=== PATIENT | male | born 1950 | race Caucasian/White ===

== ENCOUNTER 2018-05-14 09:19 | Inpatient (IN) | payer MEDICARE ==
[~2018-05-14] VITALS: Ht 172.7 cm; Wt 114.0 kg
[2018-05-14] VITALS (10 sets, daily range): BP systolic 84–131; BP diastolic 46–66
[~2018-05-14 09:19] MED LIST: ACETAMIN325 MG PO; ADVAIR DISK1 INH; ALBUTEROL SUL0.083 % IN; ALLOPURINOL100 MG PO; AMLODIPINE5 MG OR; BENAZEPRIL10 MG PO; BENAZEPRIL20 M1 OR; CIPROFLOXACN500 MG PO; COLACE100 MG OR; COMBIVENT INH; DICLOFENAC75 MG OR; DUONEB IN; ENOXAPARIN40 MG/0.1 SC; FERROUS SULF325 M1 PO; FLOVENT HFA44 MCG IN; HYDROCHLORO25 MG/TAB PO; HYDROCHLOROT25 MG OR; LASIX 40 MG TAB40 MG PO; LEVAQUIN750 MG PO; LOTREL1 CA2 OR; MAXZIDE-2537.5 MG/TA PO; MEDDOSEPAK PO; MEDROL4 M1 OR; MICRO-K10 MEQ OR; MILK OF MAG2 OR; NORVASC10 MG PO; PERCOCET 5/325M1 TAB PO; PREDNISONE10 MG PO; PROAIR HFA IN; PROVENTIL HFA IN; SYMBICORT1 AE1 IN; TRAMADOL HCL50 MG PO
--- NOTE | 2018-05-14 09:22 | NUR ---
PATIENT TO ROOM VIA WHEELCAHIR. ASSISTED ONTO STRETCHER, WEARS HOME O2 AT 3L/MIN VIA NASAL CANNULA. O2 SAT 72% ON MONITOR, RT PAGED. AT BEDSIDE.
--- NOTE | 2018-05-14 09:52 | NUR ---
PT PLACED ON BiPAP AT THIS TIME BY RESP THERAPY, SATS SEEN MID 80s PRIOR.
[2018-05-14 09:56] LABS: IMMATURE GRANULOCYTES 1.1 % (0.0-5.0); MEAN CELL VOLUME 106.2 fL CALC (80.0-100.0); MEAN CORPUSCULAR HGB 32.5 pG CALC (26.0-32.0); MEAN CORPUSCULAR HGB CONC 30.6 g/L CALC (32.0-36.0); NEUT# 4.1 thou/uL (1.82-7.42); RED BLOOD COUNT 3.85 mill/uL (4.70-6.10)
[2018-05-14] MEDS ORDERED: METFORMIN500 MG PO (10:09)
[2018-05-14] MEDS ORDERED: AUGMENTIN875TAB PO (10:10)
[2018-05-14 10:11] LABS: INTERNATIONAL NORMALIZED RATIO 1.1 RATIO (0.7-1.3)
[2018-05-14] MEDS ORDERED: MUCUS RELIEF DM PO (10:11)
[2018-05-14 10:12] LABS: ALBUMIN 3.8 g/dL (3.2-5.0); BILIRUBIN, TOTAL 0.9 mg/dL (0.0-1.4); CREATININE 1.5 mg/dL (0.7-1.3); POTASSIUM 4.8 mmol/l (3.5-5.1); TOTAL PROTEIN 6.5 g/dL (6.3-8.2)
[2018-05-14] MEDS ORDERED: PREDNISONE10 MG PO (10:12)
[2018-05-14 10:24] LABS: HEMATOCRIT 40.9 % (39.0-50.0); HEMOGLOBIN 12.5 g/dl (14.0-18.0)
--- NOTE | 2018-05-14 11:58 | NUR ---
PT CONTINES ON BiPAP, SATS NOW LOW TO MID 90s. AT BEDSIDE. PT HAS RECEIVED IVF AND ABX ORDERED.
--- NOTE | 2018-05-14 12:31 | NUR ---
BP HAS DIPPED TO 82/51, SECOND LITER OF NS INFUSING NOW. PT IS RELAXED, LIGHTS DIMMED, AWARE OF PENDING ADMISSION TO ICU.
--- NOTE | 2018-05-14 13:18 | NUR ---
NEOSYNEPHRINE DRIP STARTED AT 0.5MCG/KG/MIN, 84.8 ML/HR PER LOW BP. PT CONTINUES TO REST IN THE STRETCHER, NO EVIDENCE OF DISTRESS.
--- NOTE | 2018-05-14 14:12 | NUR ---
NEOSYNEPHRINE ADJUSTED FOR SBP 135, NOW 0.25MCG/KG/MIN.
--- NOTE | 2018-05-14 14:14 | NUR ---
NEB TX NOT GIVEN DUE TO CHANGES ON BIPAP SETTINGS AND PENDING ABG.
--- NOTE | 2018-05-14 14:42 | NUR ---
HR 46, TROPONIN REDRAWN, BP 102/55, O2 93% BiPAP, ISAI RUNNING. PT WAKES AND IS ABLE TO ANSWER QUESTIONS. ICU AWARE OF PENDING ADMISSION.
--- NOTE | 2018-05-14 16:12 | NUR ---
PT TO ICU 1 FROM ER BY STRETCHER. ABLE TO MOVE SELF OVER TO NEW BED.
--- NOTE | 2018-05-14 16:20 | NUR ---
PT ADMITTED TO ICU BED ONE WAS ABLE TOT TRANSFER SELF TO [facility], PT CURRENTLY ON BI PAP ALL MONITORING EQUIPMENT EXPLAINED PRIOR TO APPLICATION, TELE READING SB RATE IN THE 50'S WITH PAC'S, PT HYPOTENSIVE IN ER CURRENTLY ON ISAI SYPNEPRHINE DRIP AT 0.5 MCG/KG/MIN, PER PROTOCOL,ADMISSION ASSESSMENT COMPLETED SEE INTERVENTIONS, LUNGS WITH WHEEZES DIMINSHED IN BASES, BI-PAP IN PLACE SEE FLOW SHEET FOR SETTINGS, PT IS O2 DEPENDENT AT HOME FOR 6+ MONTHS ADMITTED FORMER SMOKER QUIT IN 11/2016, DENIES N/V STATES LAST BM YESTERDAY AM, SKIN WAMR DRY AND INTACT WITH NO BREAKDOWN NOTED PT HAS LARGE BRUISES NOTED TO LEFT FLANK STATES HE FEEL ABOUT 3 WEEKS AGO AT HOME IN BATHROOM, DENIES P[AIN OR DISCOMFORT, SOME 1+ EDEMA NOTED TO BILATERAL LOWER EXTREM/ANKLES, 20G IV ACCESS INTACT IN LEFT AC WITH GOOD ASPIRATE NOTED, IVF AND ISAI INFUSING WITHOUT INCIDENT, CALL GOLDBERG WITHIN REACH, SAFETY MEASURES INTRODUCED, WILL CONTINUE TO MONITOR.
--- NOTE | 2018-05-14 16:20 | NUR ---
PT TO CT AND THEN TO ICU WITHOUT INCIDENT. REPORT WAS TO CARMEN.
--- NOTE | 2018-05-14 16:23 | NUR ---
ASKED TO WAIT IN WAITING ROOM UNTIL PT ARRIVED IN ROOM. NOT IN ICU WAITING ROOM, NOT IN MSU WAITING ROOM, NOT IN ER WAITING ROOM.
--- NOTE | 2018-05-14 16:26 | NUR ---
DR HAMPTON @BEDSIDE.
--- NOTE | 2018-05-14 16:30 | NUR ---
AT BEDSIDE BRIEFLY APPEARS UPSET BECAUSE HE HASN'T EATEN ALL DAY. EDUCATED REGARDING THE IMPORTANCE OF SAFETY WITH REGARDS TO FOOD INTAKE AND BI PAP USAGE, PT VERBALIZES UNDERSTANDING AND STATES ITS OK HE ISNT SUPER HUNGRY ANYWAY, STAYS BRIEFLY SPEAKS WITH THEN LEAVES.
--- NOTE | 2018-05-14 16:50 | NUR ---
EKG COMPLETED BEDSIDE AFTER NOTICING ELEVATION ON TELE. EKG SHOWED ELEVATION IN LEADS 2, 3, & 6. EKG SHOWED TO DR HAMPTON ON UNIT. HE DOES NOT WANT US TO CALL A STEMI ALERT. MD ORDERED "LETS WAIT & SEE, DRAW THE TROPONINS I ORDERED". LAB NOTIFIED.
--- NOTE | 2018-05-14 17:55 | NUR ---
PT RESTING FLUIDS PROVIDED PRN FOR ORAL MUCOUSA DRYNESS, DENIES PAIN OR DISCOMFORT, EDUCATED REGARDING KEEPING BI PAP ON THIS PM, ACCU CHECK COMPLETED EARLIER 203 WILL COVER WHEN PHARMACY PROFILES, NO OTHER COMPLAINTS OFFERED, CALL GOLDBERG WITHIN REACH
--- NOTE | 2018-05-14 18:15 | NUR ---
17F CARRERA INSERTED BY Lucy PEREZ RN USING STERILE TECHNIQUE SLIGHT RESISTANCE MET AT PROSTATE BUT NO BLOOD NOTED AND NO DIFFICULTY WITH COMPLETE INSERTION, AND IMMEDIATE RETURN OF CLEAR KEYONA URINE, CATHETER LEG STRAP APPLIED TO RIGHT UPPER THIGH, PT TOLERATED W/O INCIDENT, WILL CONTINUE TO MONITOR.
--- NOTE | 2018-05-14 18:50 | NUR ---
REPORT FROM LEONOR MORALES. ASSUMED PT. CARE.
--- NOTE | 2018-05-14 19:10 | NUR ---
ISAI DRIP DECREASED TO 0.4 MCG/KG/MIN AT THIS TIME. CALL PLACED TO DIRECTOR INTERNAL COMMUNICATIONS FOR ADDITIONAL ISAI DRIP CONTENTS PYXIS EMPTY.
--- NOTE | 2018-05-14 20:03 | NUR ---
ISAI DRIP DECREASED TO 0.3 MCG/KG/MIN. MONA HUGGAR APPLIED AT THIS TIME AT 38 DEGREES C. PT. PROVIDED WITH LIP MOISTURIZER AND WATER AT THIS TIME. STABLE. RESPS EVEN AND UNLABORED. SKIN WARM AND DRY. DENIES COMPLAINTS OF PAIN AT THIS TIME. CALL LIGHT WITHIN REACH. 1+ LOWER EXT EDEMA NOTED. DISTIL PULSES INTACT. BP STABLE AT 113/90 AT THIS TIME. DENIES ABD PAIN, ONLY DISCOMFORT AT SITE OF CARRERA CATH. S1,S2 NOTED. SINUS JUSTYNA IN THE 40-50S. WILL CONTINUE TO CLOSELY MONITOR.
--- NOTE | 2018-05-14 20:06 | NUR ---
ISAI DRIP DECREASED TO 0.2 MCG/KG/MIN AT THIS TIME. WILL CONTINUE TO CLOSELY MONITOR.
--- NOTE | 2018-05-14 21:59 | NUR ---
BP NOW 84/50. ISAI DRIP INCREASED BACK TO 0.3 MCG/KG/MIN AT THIS TIME. CALL LIGHT REMAINS WITHIN REACH. NEB TREATMENT COMPLETE AND BIPAP FIO2 SETTINGS DECREASED TO 30%. WILL CONTINUE TO CLOSELY MONITOR.
--- NOTE | 2018-05-14 22:50 | NUR ---
ISAI DRIP INCREASED TO 0.4 MCG/KG/MIN AT THIS TIME. BP REMAINS SLIGHTLY LOW AT THIS TIME. WILL CONTINUE TO MONITOR FOR EFFECT.
[2018-05-15] VITALS (29 sets, daily range): BP systolic 93–137; BP diastolic 49–66
--- NOTE | 2018-05-15 | NUR ---
PT. FOUND WITH IV DISLODGED TO LT. AC AT THIS TIME. PT. IS C/O SOME MILD DISCOMFORT AT THE SITE. SITE APPEARS WITH SOME EXTRAVASATION OF NS AND ISAI-SYNEPHRINE. MD IMMEDIATELY MADE AWARE AND NEW ORDERS RECEIVED FOR ICE COMPRESSES, NO OTHER ORDERS AT THIS TIME. WILL CONTINUE TO CLOSELY MONITOR SITE FOR WORSENING OF SX. PT. ASSISTED TO BSC AT THIS TIME.
--- NOTE | 2018-05-15 00:25 | NUR ---
PT. WITH LARGE SOFT BM AT THIS TIME. TOLERATED WELL. REMAINED ON BIPAP DURING BM AND WHILE ON BEDSIDE COMMODE.
--- NOTE | 2018-05-15 00:30 | NUR ---
PT. ASSISTED BACK TO BED AT THIS TIME. ALL LINENS AND GOWN CHANGED PT. HAS BEEN DIAPHORETIC. BP CUFF CHANGED. NEW IV PLACED TO RT. HAND. WILL CONTINUE TO ASSESS LT. AC SITE FOR REDNESS, OR INCREASED PAIN. ICE PACK APPLIED AT THIS TIME.
--- NOTE | 2018-05-15 00:40 | NUR ---
ISAI DRIP REINITIATED AT 0.2 MCG/KG/MIN. WILL MONITOR BP AND TITRATE ACCORDINGLY. PT. DENIES DIZZINESS OR LIGHTHEADEDNESS. CALL LIGHT REMAINS WITHIN REACH.
--- NOTE | 2018-05-15 02:05 | NUR ---
PT. RESTING IN BED WITH EYES CLOSED IN NO DISTRESS. RESPS EVEN AND UNLABORED. SKIN REMAINS COOL AND MOIST. CALL LIGHT REMAINS WITHIN REACH. ISAI-SYNEPHRINE DRIP CONTINUES AT 0.2 MCG/KG/MIN. WILL CONTINUE TO ASSESS.
--- NOTE | 2018-05-15 03:05 | NUR ---
PT. REMAINS STABLE ON THE BIPAP. RESPS REMAIN UNLABORED.
--- NOTE | 2018-05-15 04:11 | NUR ---
PT. PROVIDED WITH WATER AT THIS TIME. IV FLUIDS AND ISAI DRIP INFUSING ORDERED. REMAINS HYPOTHERMIC AT 95.5, WILL CONTINUE WITH MONA ORTIZ. REMAINS IN NO DISTRESS.
--- NOTE | 2018-05-15 05:20 | NUR ---
LAB AT BEDSIDE AT THIS TIME TO DRAW PT.
--- NOTE | 2018-05-15 05:46 | NUR ---
NEB TREATMENT COMPLETE AT THIS TIME. PT. PLACED ON 3L NC AND BIPAP REMOVED TO ASSESS FOR RESP STATUS. PT. PROVIDED WITH WATER AT THIS TIME. CALL LIGHT REMAINS WITHIN REACH. ISAI DRIP LOWERED TO 0.1 MCG/KG/MIN AT THIS TIME. WILL CONTINUE TO ASSESS FOR NEED FOR TITRATION. REMAINS ON MONA HUGGER WITH TEMP OF 95.3. DENIES COMPLAINTS OF PAIN. NEW ICE PACK APPLIED TO LT. FOREARM/AC AREA. PT. DENIES COMPLAINTS OF ANY PAIN AT THE SITE OF INFILTRATION.
[2018-05-15 05:59] LABS: HEMOGLOBIN 12.2 g/dl (14.0-18.0); IMMATURE GRANULOCYTES 0.7 % (0.0-5.0); MEAN CELL VOLUME 104.3 fL CALC (80.0-100.0); MEAN CORPUSCULAR HGB 32.6 pG CALC (26.0-32.0); MEAN CORPUSCULAR HGB CONC 31.3 g/L CALC (32.0-36.0); NEUT# 3.2 thou/uL (1.82-7.42); RED BLOOD COUNT 3.74 mill/uL (4.70-6.10); RED CELL DISTRI WIDTH 14.7 % (11.5-15.5)
[2018-05-15 06:00] LABS: ALBUMIN 3.4 g/dL (3.2-5.0); ALKALINE PHOSPHATASE 45 u/l (38-126); AMYLASE 36 u/l (30-110); ANION GAP 15 (6-22 (CALC)); BILIRUBIN, TOTAL 0.6 mg/dL (0.0-1.4); BUN 41 mg/dL (8-23); BUN/CREATININE RATIO 35 (12-20 (CALC)); CARBON DIOXIDE 26 mmol/l (22-30); CHLORIDE 103 mmol/l (95-108); CREATININE 1.2 mg/dL (0.7-1.3); GFR > 60 ML/MIN (>=60 (CALC)); GFR FOR AFR.AMER. > 60 ML/MIN (>=60 (CALC)); LIPASE 71 u/l (23-300); POTASSIUM 4.9 mmol/l (3.5-5.1); SGOT/AST 84 u/l (19-48); SODIUM 139 mmol/l (137-146)
--- NOTE | 2018-05-15 07:25 | NUR ---
PT RESTING IN BED ALERT AND ORIENTED, OFFERS NO COMPLAINTS, PT CURRENTLY ON NC 3L (WHAT HE WEARS AT HOME) TELE READING SB RATE IN THE 50'S WITH PAC'S, PT CURRENTLY ON ISAI SYPNEPRHINE DRIP AT 0.1 MCG/KG/MIN, PER PROTOCOL, AM ASSESSMENT COMPLETED SEE INTERVENTIONS, LUNGS WITH WHEEZES DIMINSHED IN BASES, ABD SLIGHTLY DISTENDED BUT SOFT DENIES N/V STATES LAST BM 05/13/18 AM, SKIN REMAINS DIAPHORETIC BUT INTACT WITH NO BREAKDOWN NOTED PT HAS LARGE UNCHANGED BRUISES NOTED TO LEFT FLANK FROM FALL A FEW WEEKS AGO AT HOME CONTINUES TO DENY PAIN OR DISCOMFORT, SOME 1+ EDEMA NOTED TO BILATERAL LOWER EXTREM/ANKLES, 20G IV ACCESS INTACT IN R WRIST, IVF AND ISAI INFUSING WITHOUT INCIDENT, CALL GOLDBREG WITHIN REACH, SAFETY MEASURES REINFORCED, WILL CONTINUE TO MONITOR.
--- NOTE | 2018-05-15 07:45 | NUR ---
AT BEDSIDE ASSISTING WITH AM MEAL, ACCU CHECK COVERAGE GIVEN ORDERED, CALL GOLDBERG WITHIN REACH
--- NOTE | 2018-05-15 08:27 | NUR ---
PT RESTING, TOLERATED AM MEAL W/O INCIDENT, VERIFIED COMPABILITY OF ABT WITH ISAI THRU PHARMACY. CALL GOLDBERG WITHIN REACH, WILL CONTINUE TO MONITOR.
--- NOTE | 2018-05-15 09:41 | NUR ---
PT RESTING INBDE,NO S/S OF DISTRESS O2 SATS 84-88% ON NC, ORAL TEMP 96.8 BEAR HUGGER OFF AT THIS TIME, PT COMPLAINTS OF BEING VERY HOT, REMAINS DIAPHORETIC, CALL GOLBDERG WITHIN REACH, WILL CONTINUE TO MONITOR.
--- NOTE | 2018-05-15 11:00 | NUR ---
pt bp maintained will wean darwin, O2 remains at 3l NC, sats 85-89% no apparent distress or SOB noted, aware and ok with current o2 sats, will continue to monitor
--- NOTE | 2018-05-15 11:25 | NUR ---
DR HAMPTON @BEDSIDE, DISCUSSING URINARY ABNORMALITIES
--- NOTE | 2018-05-15 12:30 | NUR ---
PT TOLERATED LUNCH WELL WITH 100% INTACT, STATES FEELING A LITTLE BETTER, EXERTIONAL SOB NOTED OTHERWISE NO COMPLAINTS OFFERED, CALL GOLDBERG WITHIN REACH.
--- NOTE | 2018-05-15 14:00 | NUR ---
PT RESTING IN BED, CONTINES TO TOLERATE NEOSYNEPHRINE OFF, AND BP MAINTAINED WITH MAP >65, OFFERS NO NEW COMPLAINTS, CALL GOLDBERG WITHIN REACH.
--- NOTE | 2018-05-15 15:00 | NUR ---
COMPLETE BED BATH PERFORMED OOB TO BSC WITHMOD ASSIST, REST PERIODS PROVIDED FOR SOB, TOLERATED WELL, COMPLETE LINEN CHANGE PROVIDED AND TEMP 98.3, PT STATES FEELING MUCH BETTER, REPOSITIONED FOR COMFORT, CALL GOLDBERG WITHIN REACH
--- NOTE | 2018-05-15 16:08 | NUR ---
PT UNABLE TO HAVE BM BUT WAS PASSING FLATTUS WHEN ON BSC EARLIER, DENIES FEELING CONSTIPATED, TEMP REMAINS WNL 98.1 TYMPANICALLY, BEAR HUGGER REMAINS OFF, WILL CONTINUE TO MONITOR
--- NOTE | 2018-05-15 16:40 | NUR ---
WOFE AT BEDSIDE OFFERS NO NEW COMPLAINTS, NEOSYNEPRHINE REMAINS OFF WOTH BP MAINTAINED WITH MAP>65, NO SOB OR DISTRESS NOTED, WILL CONTINUE TO MONITOR.
--- NOTE | 2018-05-15 17:43 | NUR ---
PT SITTING UP IN BED, EATING DINNER.
--- NOTE | 2018-05-15 18:45 | NUR ---
REPORT FROM Hanna MORELOS RN. ASSUMED PT. CARE.
--- NOTE | 2018-05-15 19:05 | NUR ---
BROTHER AT BEDSIDE AT THIS TIME. CALL LIGHT REMAINS WITHIN REACH.
--- NOTE | 2018-05-15 19:45 | NUR ---
PT. FOUND RESTING IN BED IN NO DISTRESS. RESPS EVEN, SHALLOW, UNLABORED. MOIST COUGH NOTED. SPUTUM SPECIMEN OBTAINED AT THIS TIME. LUNG SOUNDS DIMINISHED THROUGHOUT. BOWEL SOUNDS PRESENT. 1+ LOWER EXT EDEMA. CALL LIGHT WITHIN REACH. ISAI-SYNEPHRINE DRIP DISCONTINUED AT THIS TIME. BP/HR STABLE. AFEBRILE. MAE. RODRIGUEZ. DENIES COMPLAINTS OTHER THAN BEING UNCOMFORTABLE IN BED. OFFERED ASSISTANCE WITH REPOSITIONING BUT PT. STATES HE HAS SOME PILLOWS UNDERNEATH HIM AND HE WILL REPOSITION HIMSELF. WILL CONTINUE TO ASSESS.
--- NOTE | 2018-05-15 21:05 | NUR ---
PT. MEDICATED PER PHYSICIAN ORDERS. WILL CONTINUE TO MONITOR.
--- NOTE | 2018-05-15 21:38 | NUR ---
PT. RESTING IN BED WITH EYES CLOSED. NO DISTRESS NOTED. REMAINS ON 3L VIA NC. HR STABLE. ISAI DRIP REMAINS OFF AT THIS TIME. CALL LIGHT REMAINS WITHIN REACH. WILL CONTINUE TO ASSESS.
--- NOTE | 2018-05-15 22:15 | NUR ---
NEB TREATMENT COMPLETE. PT. CONTINUES TO REST WELL ON 3L NC AT THIS TIME. BP/HR STABLE. REMAINS OFF THE ISAI DRIP AT THIS TIME. BP MAINTAINING WELL. NO DISTRESS.
--- NOTE | 2018-05-15 23:35 | NUR ---
PT. RESTING IN BED WITH EYES CLOSED IN NO DISTRESS. CALL LIGHT REMAINS WITHIN REACH. BP/HR STABLE AT THIS TIME. WILL CONTINUE TO MONITOR.
[2018-05-16] VITALS (20 sets, daily range): BP systolic 118–143; BP diastolic 27–70
--- NOTE | 2018-05-16 00:54 | NUR ---
PT. PLACED BACK ON BIPAP AT THIS TIME. FOUND WITH MILD SOB. SPO2 AT 86%. STATES HE UTILIZES CPAP AT HOME.
--- NOTE | 2018-05-16 01:20 | NUR ---
PT. ASKING TO HAVE BIPAP REMOVED. REPORTS THAT IT IS MAKING HIS MOUTH TOO DRY FOR HIM TO TOLERATED. SPO2 IS 94% ON THE BIPAP. PLACED BACK ON 3L VIA NC.
--- NOTE | 2018-05-16 03:11 | NUR ---
PT. WITH INTERMITTENT WHEEZING TYPE COUGHING EPISODES. SPO2 WILL DECREASE TO LOW 80'S DURING THESE EPISODES. WILL CONTINUE TO ASSESS. REMAINS ON 3L VIA NC.
--- NOTE | 2018-05-16 05:12 | NUR ---
PT. REPOSITIONED FOR COMFORT. REMAINS AWAKE, ALERT, ORIENTED X 3. NO DISTRESS. RT AT BEDSIDE TO ADMINISTER NEB TREATMENT.
[2018-05-16 05:19] LABS: HEMATOCRIT 37.3 % (39.0-50.0); HEMOGLOBIN 11.5 g/dl (14.0-18.0); MEAN CELL VOLUME 105.7 fL CALC (80.0-100.0); MEAN CORPUSCULAR HGB 32.6 pG CALC (26.0-32.0); MEAN CORPUSCULAR HGB CONC 30.8 g/L CALC (32.0-36.0); NEUT# 6.11 thou/uL (1.82-7.42); RED BLOOD COUNT 3.53 mill/uL (4.70-6.10)
--- NOTE | 2018-05-16 05:23 | NUR ---
neb treatment complete at this time. Will continue to monitor.
--- NOTE | 2018-05-16 06:23 | NUR ---
PT. RESTING IN BED IN NO DISTRESS. RESPS REMAIN EVEN, SHALLOW AND UNLABORED AT THIS TIME. IV FLUIDS CONTINUE TO INFUSE AT 75 CC/HR. WILL CONTINUE TO ASSESS.
[2018-05-16 06:25] LABS: ALBUMIN 3.1 g/dL (3.2-5.0); ANION GAP 12 (6-22 (CALC)); BILIRUBIN, TOTAL 0.3 mg/dL (0.0-1.4); BUN 30 mg/dL (8-23); BUN/CREATININE RATIO 31 (12-20 (CALC)); CARBON DIOXIDE 31 mmol/l (22-30); CHLORIDE 101 mmol/l (95-108); GFR > 60 ML/MIN (>=60 (CALC)); GFR FOR AFR.AMER. > 60 ML/MIN (>=60 (CALC)); POTASSIUM 4.7 mmol/l (3.5-5.1); SGOT/AST 44 u/l (19-48); SODIUM 139 mmol/l (137-146); TOTAL PROTEIN 5.7 g/dL (6.3-8.2)
[2018-05-16 06:30] LABS: ALKALINE PHOSPHATASE 85 u/l (38-126)
--- NOTE | 2018-05-16 07:35 | NUR ---
PT RESTING IN BED ALERT AND ORIENTED, OFFERS NO COMPLAINTS, PT CURRENTLY ON NC 3L (WHAT HE WEARS AT HOME) MINIMALLY TOLERATED BI PAP LAST PM STATES ITS MUCH HARSHER THAN HIS CPAP AT HOME, TELE READING SR RATE IN THE 60-70'S WITH PAC'S, PT BP MAINTAINED WITH NEOSYNEPHRINE OFF SINCE LAST PM, AM ASSESSMENT COMPLETED SEE INTERVENTIONS, LUNGS WITH WHEEZES DIMINSHED IN BASES, ABD SLIGHTLY DISTENDED BUT SOFT DENIES N/V STATES LAST BM 05/13/18 AM, SKIN DRY AND NO FURTHER DIAPHORETIS SINCE YESTERDAY AFTERNOON, SKIN INTACT WITH NO BREAKDOWN NOTED PT HAS LARGE UNCHANGED BRUISES NOTED TO LEFT FLANK FROM FALL A FEW WEEKS AGO AT HOME PT HAS SLIGHT TEMP THIS AM AND COMPLAINS OF MILD HEADACHE, WILL MEDICATE ORDERED, SOME UNCHANGED 1+ EDEMA NOTED TO BILATERAL LOWER EXTREM/ANKLES, 20G IV ACCESS INTACT IN R WRIST, IVF INFUSING WITHOUT INCIDENT, CALL GOLDBERG WITHIN REACH, SAFETY MEASURES REINFORCED, WILL CONTINUE TO MONITOR.
--- NOTE | 2018-05-16 08:00 | NUR ---
SET UP ASSIST PROVIDED EARLIER FOR AM MEAL TOLERATES DIET W/O INCIDENT, MEDICATED ORDERED FOR AM MEDICATIONS AND TYLENOL FOR TEMP/STREET, WILL MONITOR EFFICACY, CALL GOLDBERG WITHIN REACH, CARRERA CATH REMAINS INTACT WITH CATH STRAP SECURE ON R UPPER THIGH, WILL CONTINUE TO MONITOR.
--- NOTE | 2018-05-16 09:39 | NUR ---
PT RESTING IN BED OFFERS NO COMPLAINTS STATES HEADAHCE IMPROVED, VS REMAINS STABLE TEMP SLIGHTYL IMPROVED WELL AT 99.9, WILL CONTINUE TO MONITOR
--- NOTE | 2018-05-16 10:30 | NUR ---
RESTING I NEDB, FAN PROVIDED FOR COMFORT, TEMP REMAINS SLIGHTLY ELEVATED, DECLINED HAVING SOCKS OFF, REMOVED BLANKET FOR COMFORT, PER PT REQUEST, WILL CONTINUE TO MONITOR.
--- NOTE | 2018-05-16 11:25 | NUR ---
AT BEDSIDE DISCUSSING PLAN IF CARE INCLUDING POSSIBLE TRANSFER TO MED SURG WHEN BRINGS HOME CPAP IN. ALL QUESTIONS ANSWERED.
--- NOTE | 2018-05-16 12:10 | NUR ---
PT RESTING IN BED, TOLERATED LUNCH W/O INCIDENT, CALL GOLDBERG WITHIN REACH, WILL CONTINUE TO MONITOR.
--- NOTE | 2018-05-16 13:16 | NUR ---
PT RESTING IN BED OFFERS NO NEW COMPLAINTS, TOOK PO LACTULOSE WITHOUT INCIDENT, CALL GOLDBERG WITHIN REACH, IN EARLIER AND BROUGHT PT HOME CPAP MACHINE (AT BEDSIDE), OFFERS NO NEW COMPLAINTS CALL GOLDBERG WITHIN REACH, WILL CONTINUE TO MONITOR
--- NOTE | 2018-05-16 13:24 | NUR ---
ULTRASOUND AT BEDSIDE FOR TESTS ORDERED.
--- NOTE | 2018-05-16 14:30 | NUR ---
Rustam AT [facility] SETTING UP HOME CPAP FOR PT. OFFERS NO NEW COMPLAINTS, CALL GOLDBERG WITHIN REACH, WILL CONTINUE TO MONITOR.
--- NOTE | 2018-05-16 17:49 | NUR ---
PT RESTING IN BED WEARING HOME CPAP, DECLINES PM MEAL, LEFT AT BEDSIDE IN CASE PT CHANGES HIS MIND.
--- NOTE | 2018-05-16 19:00 | NUR ---
IN TO SEE PATIENT.
--- NOTE | 2018-05-16 19:15 | NUR ---
awake. denies resp diff. home cpap machine on. cardiac monitor technician shows sinus rhythm pacs. #20 rt hand ns infusing @ 75cchr. po fluids taken well. godinez cath in place urine lt kev. fall precautions cont.
--- NOTE | 2018-05-16 20:00 | NUR ---
air launch weapons technician here.
--- NOTE | 2018-05-16 22:00 | NUR ---
awake. no c/o voiced. circus roustabout shows sinus rhythm.
[2018-05-17] VITALS (13 sets, daily range): BP systolic 120–150; BP diastolic 52–72
--- NOTE | 2018-05-17 00:10 | NUR ---
up to bsc. mo bm. shelter monitor shows sinus rhythm pacs.
--- NOTE | 2018-05-17 04:00 | NUR ---
eyes closed. no apparent distress. tool distributor shows sinus rhythm.
[2018-05-17 05:52] LABS: HEMATOCRIT 38.8 % (39.0-50.0); HEMOGLOBIN 11.7 g/dl (14.0-18.0); MEAN CELL VOLUME 106.6 fL CALC (80.0-100.0); MEAN CORPUSCULAR HGB 32.1 pG CALC (26.0-32.0); MEAN CORPUSCULAR HGB CONC 30.2 g/L CALC (32.0-36.0); NEUT# 4.8 thou/uL (1.82-7.42); RED BLOOD COUNT 3.64 mill/uL (4.70-6.10); RED CELL DISTRI WIDTH 14.2 % (11.5-15.5)
[2018-05-17 05:59] LABS: ALKALINE PHOSPHATASE 74 u/l (38-126); ANION GAP 11 (6-22 (CALC)); BILIRUBIN, TOTAL 0.4 mg/dL (0.0-1.4); BUN 23 mg/dL (8-23); BUN/CREATININE RATIO 30 (12-20 (CALC)); CARBON DIOXIDE 32 mmol/l (22-30); CHLORIDE 100 mmol/l (95-108); CREATININE 0.8 mg/dL (0.7-1.3); GFR > 60 ML/MIN (>=60 (CALC)); GFR FOR AFR.AMER. > 60 ML/MIN (>=60 (CALC)); MAGNESIUM 2.1 mg/dL (1.6-2.3); SGOT/AST 36 u/l (19-48); SODIUM 138 mmol/l (137-146); TOTAL PROTEIN 5.7 g/dL (6.3-8.2)
--- NOTE | 2018-05-17 07:25 | NUR ---
PT RESTING IN BED ALERT AND ORIENTED, OFFERS NO COMPLAINTS, PT CURRENTLY ON NC 3L (WHAT HE WEARS AT HOME) WEARS HOME CPAP INTERMITTENLY, TELE READING SR RATE IN THE 60-70'S WITH PAC'S, VS STABLE AND PT IS AFEBRILE, AM ASSESSMENT COMPLETED SEE INTERVENTIONS, LUNGS WITH WHEEZES DIMINSHED IN BASES, ABD SLIGHTLY DISTENDED BUT SOFT DENIES N/V STATES LAST BM 05/13/18 AM, CURRENTLY ON LACTULOSE STARTED YESTERDAY, SKIN REMAINS WARM AND DRY, NO FURTHER DIAPHORESIS NOTED, SKIN INTACT WITH NO BREAKDOWN NOTED PT HAS LARGE UNCHANGED BRUISES NOTED TO LEFT FLANK FROM FALL A FEW WEEKS AGO AT HOME CONTINUES TO HAVE UNCHANGED 1+ EDEMA NOTED TO BILATERAL LOWER EXTREM/ANKLES, 20G IV ACCESS INTACT IN R WRIST, IVF INFUSING WITHOUT INCIDENT, CALL GOLDBERG WITHIN REACH, SAFETY MEASURES REINFORCED, WILL CONTINUE TO MONITOR.
--- NOTE | 2018-05-17 07:55 | NUR ---
ASSISTED PT TO SITTING ON EDGE OF BED FOR AM MEAL, TOLERATES ACTIVITY WITH SOME EXERTIONAL SOB NOTED, PT RESTS AND REBOUNDS,HOME CPAP AT BEDSIDE, CALL GOLDBERG WITHIN REACH, WILL CONTINUE TO MONITOR.
--- NOTE | 2018-05-17 09:17 | NUR ---
PT OOB ON BSC, WITH WIND INSTRUMENT REPAIRER ASSIST, CALL GOLDBERG WITHIN REACH.
--- NOTE | 2018-05-17 09:52 | NUR ---
PT BACK TO BED, REPOSITIONED SELF FOR COMFORT, CALL GOLDBERG WITHIN REACH.
--- NOTE | 2018-05-17 10:13 | NUR ---
SATS REMAINS IN THE MID 70'S AFTER BACK TO BED, PT ENCOURAGED TO WEAR HOME CPAP, SATS REMAIN 75-80% AWARE. SUNITA ESCOBAR IN R.T. AWARE
--- NOTE | 2018-05-17 10:21 | NUR ---
Rustam AT BEDSIDE FOR ABG, AT BEDSIDE PLAN OF CARE DISCUSSED
--- NOTE | 2018-05-17 11:00 | NUR ---
ABG RESULTS DISCUSSED WITH , PT PLACED BACK ON BIPAP SEE FLOW SHEET FOR SETTINGS. PT TOLERATES WELL, RRESTING AT THIS TIME, WILL CONTINUE TO MONITOR.
--- NOTE | 2018-05-17 12:00 | NUR ---
TOLERATING BIPAP WITH OUT INCIDENT, OFFERS O COMPLAINTS, VS STBALE REMAINS AFEBRILE ,CARRERA CATH INTACT DRAINING CLEAR KEYONA URINE, CATH STARP SECURE, KRISSY CONTINUE TO MONITOR.
--- NOTE | 2018-05-17 14:15 | NUR ---
R.T. AT BEDSIDE FOR ABG ORDERED, PT TOLERATED WELL, WILL CONTINUE TO MONITOR.
--- NOTE | 2018-05-17 14:33 | NUR ---
ABG RESULTS DISCUSSED WITH , PT PLACED BACK ON BIPAP SEE FLOW SHEET FOR SETTINGS. PT TOLERATES WELL, RRESTING AT THIS TIME, WILL CONTINUE TO MONITOR.
--- NOTE | 2018-05-17 16:04 | NUR ---
AT BEDSIDE VISITING, PT CONTINUES TO TOLERATE BIPAP DOZING FREQUENTLY, CALL GOLDBERG WITHIN REACH,
--- NOTE | 2018-05-17 16:43 | NUR ---
AWARE OF PATIENT COMPLAINTS OF SHOULDER DISCOMFORT (NOT NEW STATES ITS FROM LAYING IN BED SO MUCH) NEW ORDERS REC'D
--- NOTE | 2018-05-17 17:37 | NUR ---
MEDICATED FOR COMPLAINTS OF PAIN AND ACCU CHECK COVERAGE GIVEN ORDERED, PT REMAINS ON BIPAP AND TOLERATING W/O INCIDENT, WILL CONTINUE TO MONITOR.
--- NOTE | 2018-05-17 19:30 | NUR ---
awake. bipap cont. denies acute distress. tight wheezing cont bilat. cardiac rn shows sinus rhythm pacs. #20 rt hand ns infusing @ 75cchr. po fluids taken fair. godinez cath in place. urine clear yellow. fall precautions cont.
--- NOTE | 2018-05-17 22:00 | NUR ---
bipap cont. no acute resp diff. project management it specialist shows sinus rhythm pacs.
[2018-05-18] VITALS (18 sets, daily range): BP systolic 124–148; BP diastolic 60–71
--- NOTE | 2018-05-18 00:01 | NUR ---
eyes closed but awakens easily. denies distress. bipap cont.
--- NOTE | 2018-05-18 02:00 | NUR ---
resting quietly. resps even & unlabored. no apparent distress. hob remains elevated.
--- NOTE | 2018-05-18 04:40 | NUR ---
lab here. blood drawn.
[2018-05-18 05:29] LABS: HEMATOCRIT 38.5 % (39.0-50.0); HEMOGLOBIN 11.5 g/dl (14.0-18.0); MEAN CELL VOLUME 107.2 fL CALC (80.0-100.0); MEAN CORPUSCULAR HGB CONC 29.9 g/L CALC (32.0-36.0); NEUT# 5.19 thou/uL (1.82-7.42); RED BLOOD COUNT 3.59 mill/uL (4.70-6.10); RED CELL DISTRI WIDTH 14.1 % (11.5-15.5)
[2018-05-18 05:50] LABS: ALBUMIN 2.9 g/dL (3.2-5.0); ALKALINE PHOSPHATASE 69 u/l (38-126); ANION GAP 10 (6-22 (CALC)); BILIRUBIN, TOTAL 0.4 mg/dL (0.0-1.4); BUN 23 mg/dL (8-23); BUN/CREATININE RATIO 31 (12-20 (CALC)); CARBON DIOXIDE 36 mmol/l (22-30); CHLORIDE 97 mmol/l (95-108); CREATININE 0.7 mg/dL (0.7-1.3); GFR > 60 ML/MIN (>=60 (CALC)); GFR FOR AFR.AMER. > 60 ML/MIN (>=60 (CALC)); MAGNESIUM 2.1 mg/dL (1.6-2.3); SGOT/AST 38 u/l (19-48); SODIUM 138 mmol/l (137-146); TOTAL PROTEIN 5.6 g/dL (6.3-8.2)
[2018-05-18 05:57] LABS: POTASSIUM 5.3 mmol/l (3.5-5.1)
--- NOTE | 2018-05-18 06:00 | NUR ---
bipap cont. hob remains elevated. duster tender shows sinus rhythm pacs.
--- NOTE | 2018-05-18 07:20 | NUR ---
PT RESTING IN BED ALERT AND ORIENTED, WEARING BIPAP SEE FLOWSHEET FOR SETTINGS, PT COMPLAINS OF FEELING TIRED AND WORN OUT, SATS ON BIPAP 85-88% WITH Fi02 OF 60%, WITH LUNGS SOUNDS TIGHT/WHEEZING AND DIMINSHED IN BASES, TELE READING SR RATE IN THE 60-70'S WITH PAC'S, VS STABLE AND PT HAS TEMP OF 99.0 WILL MEDICATE FOR TEMP AND COMPLAINTS OF HEADACHE, AM ASSESSMENT COMPLETED; SEE INTERVENTIONS, ABD SLIGHTLY DISTENDED BUT SOFT DENIES N/V STATES LAST BM 05/13/18 AM, CURRENTLY ON LACTULOSE WILL ADMINISTER THIS AM, PT COMPLAINS OF FEELING SLGHTLY BLOATED WELL; SKIN REMAINS WARM AND DRY, NO FURTHER DIAPHORESIS NOTED, SKIN INTACT WITH NO BREAKDOWN NOTED; PT HAS LARGE UNCHANGED BRUISES NOTED TO LEFT FLANK FROM FALL A FEW WEEKS AGO AT HOME CONTINUES TO HAVE UNCHANGED 1+ EDEMA NOTED TO BILATERAL LOWER EXTREM/ANKLES, 20G IV ACCESS INTACT IN R WRIST, IVF INFUSING WITHOUT INCIDENT, CALL GOLDBERG WITHIN REACH, SAFETY MEASURES REINFORCED, WILL CONTINUE TO MONITOR.
--- NOTE | 2018-05-18 08:30 | NUR ---
MEDICATED FOR COMPLAINTS OF HEADAHCE AND TYLENOL GIVEN FOR SLIGHT FEVER THIS AM, TAKES PO MEDICATIONS WELL BI PAP OFF LONG ENOUGH FOR PO MED ADMINISTRATION THEN BACK ON SATS MAINTAINED 84-87% ON BIPAP WITH 60% FiO2. CALL GOLDBERG WITHIN REACH
--- NOTE | 2018-05-18 09:08 | NUR ---
AM MEAL HELD PT DECLINED WELL BUT HELD FOR BI PAP IN PLACE.
--- NOTE | 2018-05-18 09:20 | NUR ---
in to see patient transfer discussed, pt agreeable to be transferred for pulmonary consultation, Will notify per pt request once more information obtained about transfer, Call ma within reach.
--- NOTE | 2018-05-18 09:30 | NUR ---
SPOKE WITH GABRIEL JULIOCUSTOMER SERVICE CONSULTANT AT [facility], BED REQUEST PLACED. ACCEPTING, AWARE PT NEEDS AN ICU BED.L
--- NOTE | 2018-05-18 09:41 | NUR ---
Radiology at bedside for portbale CXR as ordered by
--- NOTE | 2018-05-18 10:00 | NUR ---
SPOKE WITH DAUGHTER KALINA (CODE PROVIDED) AND UPDATED REGARDING PT CONDITION, PLAN OF CARE INCLDUING TRANSFER TO ANOTHER FACILITY FOR PULMONOLOGY. PT AWARE WELL. CALL [facility] WITHIN REACH.
--- NOTE | 2018-05-18 10:01 | NUR ---
DAUGHTER I LAW FROM [facility] CALLED (CODE PROVIDED TO HEAVY MEDIA OPERATOR) UPDATED WELL REAGRDING PLAN TO TRANSFER. WILL CONTINUE TO MONITOR.
--- NOTE | 2018-05-18 11:14 | NUR ---
IVF RATE DECREASED TO KVO PER VERBAL ORDER, ABT INFUSING ORDERED, BI PAP REMOVED BRIEFLY FOR ORAL FLUID INTAKE, ACCU CHECK COVERAGE GIVEN ORDERED, WILL CONTINUE TO MONITOR.
--- NOTE | 2018-05-18 12:30 | NUR ---
NPO STATUS MAINTAINED PT CONTINUES TO TOLERATE BI PAP. ORAL FLUIDS OFFERED AND PROVIDED PRN. BROTHER AT BEDSIDE,W ILL CONTINUE TO MONITOR.
--- NOTE | 2018-05-18 13:37 | NUR ---
BROTHER AT BEDSIDE PLANNING TO TAKE PT CPAP HOME. CECI UPDATE REGARDING STILL AWAITING BED PLACEMENT AT [facility].
--- NOTE | 2018-05-18 15:18 | NUR ---
CALLED GABRIEL AT [facility] TO ENQUIRE ABOUT BED, HOPEFULLY WITHIN NEXT 45 MINUTES. WILL CONTINUE TO MONITOR.
--- NOTE | 2018-05-18 16:00 | NUR ---
PT RESTING IN BED, MEDICATED WITH LACTULOSE EARLIER ORDERED, CALL [facility] WITHIN REACH, CONTINUE TO AWAIT BED ASSIGNMENT AT [facility].
--- NOTE | 2018-05-18 16:39 | NUR ---
EDWIN 252 ASSIGNED PER ANITA JULIOFRETTED INSTRUMENT INSPECTOR AT [facility], AWARE OF PLANNED [facility] TRANSPORT TO CALL ANITA BACK WITH ETA ONCE OBTAINED FROM [facility]
--- NOTE | 2018-05-18 17:00 | NUR ---
AT BEDSIDE CONSENT FOR SOFIA OBTAINED, [facility] IN [facility] SUPER AWARE OF ETA REQUESTED CALL AT TIME OF TAKE OFF
--- NOTE | 2018-05-18 17:16 | NUR ---
[facility] TEAM AT BEDSIDE
--- NOTE | 2018-05-18 17:26 | NUR ---
PT TRANSFERRED TO [facility]IA [facility]. TOOK OFF OUR BIPAP AND PLACED ON THEIRS.
--- NOTE | 2018-05-18 17:37 | NUR ---
PT TRASNFERRED TO [facility]IA [facility], EYE SURGEON ANITA AT [facility] NOTIFIED OF ETA. ATTEMPTED TO CALL REPORT LINE BUSY WILL RE TRY
--- NOTE | 2018-05-18 17:40 | NUR ---
CALLED [facility] [phone] PER STAFF THAT ANSWERED PHONE THEY ARE TIED UP IN AN EMERGENT SITUATION PLEASE CALL BACK IN 10-15 MIN, PROCESS CONTROL SUPERVISOR CONTACT INFO PROVIDED IN CASE NEEDED.
--- NOTE | 2018-05-18 18:06 | NUR ---
report called to debbie at [facility].
== END 2018-05-18 17:37 | DRG 193 ==
LOC: ED 09:19 → ED-I 11:58 → ED 12:53 → ICU 12:54
PROVIDERS: Emergency Medicine; ADMIT Internal Medicine Nephrology; ATTEND Internal Medicine Nephrology
PROC: 0T9B70Z Drainage of Bladder with Drainage Device, Via Natural or Artificial Opening (ICD-10-PCS; principal; 2018-05-14)
PROC: 5A09357 Assistance with Respiratory Ventilation, Less than 24 Consecutive Hours, Continuous Positive Airway Pressure (ICD-10-PCS; 2018-05-14)
PROC: 5A09457 Assistance with Respiratory Ventilation, 24-96 Consecutive Hours, Continuous Positive Airway Pressure (ICD-10-PCS; 2018-05-17)
DX: J18.9 Pneumonia, unspecified organism (principal); J96.02 Acute respiratory failure with hypercapnia; J44.1 Chronic obstructive pulmonary disease with (acute) exacerbation; J44.0 Chronic obstructive pulmonary disease with (acute) lower respiratory infection; E11.9 Type 2 diabetes mellitus without complications; I10 Essential (primary) hypertension; I95.9 Hypotension, unspecified; G47.33 Obstructive sleep apnea (adult) (pediatric); E66.8 Other obesity; N40.1 Benign prostatic hyperplasia with lower urinary tract symptoms; R35.0 Frequency of micturition; R33.8 Other retention of urine; R39.16 Straining to void; R39.15 Urgency of urination; R39.12 Poor urinary stream; E78.5 Hyperlipidemia, unspecified; F17.210 Nicotine dependence, cigarettes, uncomplicated; Z79.84 Long term (current) use of oral hypoglycemic drugs; Z68.38 Body mass index [BMI] 38.0-38.9, adult; Z99.81 Dependence on supplemental oxygen; Z87.01 Personal history of pneumonia (recurrent)

== ENCOUNTER 2022-10-31 16:46 | Emergency (ER) | payer MEDICARE ==
[~2022-10-31] VITALS: Ht 172.7 cm; Wt 89.0 kg
[~2022-10-31 16:46] MED LIST changes: +AUGMENTIN875TAB PO; +METFORMIN500 MG PO; +MUCUS RELIEF DM PO
[2022-10-31 20:47] LABS: BASO% 0.1 % (0-3); EOS% 0.2 % (0-8); HEMOGLOBIN 9.9 g/dl (14.0-18.0); IMMATURE GRANULOCYTES 1.2 % (0.0-5.0); LYMPH% 11.5 % (15-41); MEAN CELL VOLUME 111.3 fL CALC (80.0-100.0); MEAN CORPUSCULAR HGB 35.1 pG CALC (26.0-32.0); MEAN CORPUSCULAR HGB CONC 31.5 g/dL CAL (32.0-36.0); NEUT# 7.14 thou/uL (1.82-7.42); RED BLOOD COUNT 2.82 mill/uL (4.70-6.10); RED CELL DISTRI WIDTH 15.3 % (11.5-15.5)
[2022-10-31 20:49] LABS: HEMATOCRIT 31.4 % (39.0-50.0)
[2022-10-31 20:56] LABS: CREATININE 1.5 mg/dL (0.7-1.3); POTASSIUM 3.2 mmol/l (3.5-5.1)
[2022-10-31 20:57] LABS: ALBUMIN 3.6 g/dL (3.2-5.0); BILIRUBIN, TOTAL 0.8 mg/dL (0.2-1.3); TOTAL PROTEIN 7.1 g/dL (6.3-8.2)
[2022-10-31] MEDS ORDERED: PREDNISONE50 MG PO (22:24)
[2022-10-31] MEDS ORDERED: VIBRAMYCIN100 M2 PO (22:24)
[2022-10-31 22:41] VITALS: BP 131/70
== END 2022-10-31 22:42 | disposition home or self-care (01) ==
LOC: ED 16:46
PROVIDERS: Family Medicine
DX: J44.1 Chronic obstructive pulmonary disease with (acute) exacerbation (principal); I10 Essential (primary) hypertension; E11.9 Type 2 diabetes mellitus without complications; Z99.81 Dependence on supplemental oxygen; Z79.84 Long term (current) use of oral hypoglycemic drugs; Z20.822 Contact with and (suspected) exposure to COVID-19

== ENCOUNTER 2022-11-25 05:47 | Emergency (ER) | payer MEDICARE ==
[~2022-11-25] VITALS: Ht 177.8 cm; Wt 88.4 kg
[2022-11-25] VITALS (25 sets, daily range): BP systolic 96–145; BP diastolic 32–111
[~2022-11-25 05:47] MED LIST changes: +PREDNISONE50 MG PO; +VIBRAMYCIN100 M2 PO
[2022-11-25] MEDS ORDERED: TRELEGY ELLIPTA1 AER IN (06:15)
[2022-11-25] MEDS ORDERED: ALBUTEROL108 MCG/AC IN (06:15)
[2022-11-25 06:55] LABS: BASO% 0.2 % (0-3); EOS% 1.5 % (0-8); HEMATOCRIT 29.2 % (39.0-50.0); HEMOGLOBIN 9.1 g/dl (14.0-18.0); IMMATURE GRANULOCYTES 0.4 % (0.0-5.0); LYMPH% 21.1 % (15-41); MEAN CELL VOLUME 111.5 fL CALC (80.0-100.0); MEAN CORPUSCULAR HGB 34.7 pG CALC (26.0-32.0); MEAN CORPUSCULAR HGB CONC 31.2 g/dL CAL (32.0-36.0); MONO% 12.3 % (2-13); NEUT# 3.56 thou/uL (1.82-7.42); NEUT% 64.5 % (42-76); RED BLOOD COUNT 2.62 mill/uL (4.70-6.10); RED CELL DISTRI WIDTH 15.7 % (11.5-15.5)
[2022-11-25 07:13] LABS: ALBUMIN 3.6 g/dL (3.2-5.0); ALKALINE PHOSPHATASE 153 u/l (38-126); BILIRUBIN, TOTAL 0.6 mg/dL (0.2-1.3); BUN 35 mg/dL (8-23); BUN/CREATININE RATIO 26 (12-20 (CALC)); CHLORIDE 106 mmol/l (95-108); CREATININE 1.3 mg/dL (0.7-1.3); GFR FOR AFR.AMER. > 60 ML/MIN (>=60 (CALC)); GFR OTHER RACES 54 ML/MIN (>=60 (CALC)); LIPASE 81 u/l (23-300); SGOT/AST 29 u/l (19-48); SODIUM 139 mmol/l (137-146); TOTAL PROTEIN 6.8 g/dL (6.3-8.2)
[2022-11-25 07:19] LABS: ANION GAP 9 (6-22 (CALC)); CARBON DIOXIDE 28 mmol/l (22-30); POTASSIUM 4.3 mmol/l (3.5-5.1)
[2022-11-25 09:08] LABS: URINE BILIRUBIN - DIPSTICK Negative (NEGATIVE); URINE BLOOD DIPSTICK Negative (NEGATIVE); URINE COLOR Yellow; URINE GLUCOSE - DIPSTICK Negative (NEGATIVE); URINE KETONE Negative (NEGATIVE); URINE LEUK ESTERASE Negative (NEGATIVE); URINE NITRITE - DIPSTICK Negative (Negative); URINE PH 5.5 (4.5-8.0); URINE PROTEIN - DIPSTICK Negative (NEG-TRACE); URINE SPECIFIC GRAVITY 1.015; URINE UROBILINOGEN - DIPSTICK 0.2 E.U./dL (0.2)
[2022-11-25] MEDS ORDERED: VITAMIN C PO (11:57)
[2022-11-25] MEDS ORDERED: IRON PO (11:57)
== END 2022-11-25 12:18 | disposition home or self-care (01) ==
LOC: ED 05:47
PROVIDERS: Emergency Medicine
DX: R10.31 Right lower quadrant pain (principal); J44.1 Chronic obstructive pulmonary disease with (acute) exacerbation; D64.9 Anemia, unspecified; I10 Essential (primary) hypertension; G47.30 Sleep apnea, unspecified; M10.9 Gout, unspecified; Z87.891 Personal history of nicotine dependence; Z85.038 Personal history of other malignant neoplasm of large intestine; Z92.21 Personal history of antineoplastic chemotherapy; Z90.49 Acquired absence of other specified parts of digestive tract; Z99.81 Dependence on supplemental oxygen; Z79.84 Long term (current) use of oral hypoglycemic drugs
CPT/HCPCS: Q9967